=== PATIENT | female | born 1960 | race Hispanic/Latino ===

== ENCOUNTER 2020-07-12 22:13 | Inpatient (IN) | payer OTHER ==
[~2020-07-12] VITALS: Ht 134.6 cm; Wt 66.4 kg
[2020-07-12] MEDS ORDERED: ONDANSETRON HCL 4 MG/2 ML VIAL ONE (22:15)
[2020-07-12] MEDS ORDERED: ASPIRIN 325 MG TABLET ONE (22:15)
[2020-07-12] MEDS ORDERED: FAMOTIDINE/PF 20 MG/2 ML VIAL IV ONE (22:15)
[2020-07-12] MEDS ORDERED: NITROGLYCERIN 1GM/1 INCH PACKET TD ONE (22:16)
[2020-07-12] MEDS ORDERED: PANTOPRAZOLE 40 MG/VIAL ONE (22:16)
[2020-07-12 22:25] LABS: BASOPHILS % (AUTO) 0.4 % (0.0-5.0); EOSINOPHILS % (AUTO) 2.8 % (0.0-8.0); LYMPHOCYTES % (AUTO) 24.8 % (21.0-51.0); MEAN CORPUSCULAR HEMOGLOBIN 29.6 pg (27.0-33.0); MEAN CORPUSCULAR HGB CONC 32.3 g/dL (32.0-36.0); MEAN CORPUSCULAR VOLUME 91.5 fL (79-99); MONOCYTES % (AUTO) 3.6 % (3.0-13.0); PLATELET COUNT (AUTO) 206 K/uL (130-400); RED BLOOD CELL COUNT(AUTO) 2.13 MIL/uL (4.00-5.50); RED CELL DISTRIBUTION WIDTH 13.4 % (11.0-15.5); WHITE BLOOD COUNT (AUTO) 9.5 K/uL (4.8-10.8)
[2020-07-12 22:37] LABS: HEMATOCRIT 19.5 % (36-48)
[2020-07-12 22:44] LABS: INR 1.13 (0.85-1.15); PROTHROMBIN TIME 12.2 SEC (9.6-11.6)
[2020-07-12 22:45] LABS: PARTIAL THROMBOPLASTIN TIME 27.3 SEC (26.3-35.5)
[2020-07-12 22:50] LABS: ALBUMIN 3.4 g/dL (3.5-5.0); BILIRUBIN,TOTAL 0.3 mg/dL (0.2-1.0); POTASSIUM 5.4 mmol/L (3.5-5.1); TOTAL PROTEIN, SERUM 7.7 g/dL (6.0-8.3)
[2020-07-12 22:55] LABS: CREATININE 8.1 mg/dL (0.5-1.5)
[2020-07-12] MEDS ORDERED: IOHEXOL 350 MG/ML 100ML INFUS..BTL IV ONE (23:49)
[2020-07-13] MEDS ORDERED: ZOSYN 3.375GM+NS 50ML 50 ML IV ONE (01:37)
[2020-07-13] MEDS ORDERED: ACETAMINOPHEN 325 MG TAB PO PRN ×2 (03:15)
[2020-07-13] MEDS ORDERED: ONDANSETRON HCL 4 MG/2 ML VIAL IV PRN (03:15)
[2020-07-13] MEDS ORDERED: HYDROMORPHONE 1 MG/1 ML AMP IV PRN (03:15)
[2020-07-13] MEDS: ZOSYN 3.375GM+NS 50ML 50 ML IV SCH ×2 (03:15→15:23)
[2020-07-13] MEDS ORDERED: SODIUM CHLORIDE 0.9% 1000ML 1,000 ML IV SCH (03:15)
[2020-07-13 03:43] LABS: % IRON SATURATION 16.6 % (22-44)
[2020-07-13 04:15] LABS: HEMOGLOBIN A1C 5.1 % (4.0-6.0)
[2020-07-13] MEDS ORDERED: LISINOPRIL 10 MG TABLET PO SCH ×2 (04:30→09:00)
[2020-07-13] MEDS ORDERED: LISINOPRIL 5 MG TABLET ONE (04:41)
[2020-07-13 05:36] LABS: BASOPHILS % (AUTO) 0.5 % (0.0-5.0); EOSINOPHILS % (AUTO) 2.3 % (0.0-8.0); HEMATOCRIT 23.9 % (36-48); LYMPHOCYTES % (AUTO) 20.1 % (21.0-51.0); MEAN CORPUSCULAR HEMOGLOBIN 28.6 pg (27.0-33.0); MEAN CORPUSCULAR HGB CONC 31.8 g/dL (32.0-36.0); MEAN CORPUSCULAR VOLUME 89.8 fL (79-99); MONOCYTES % (AUTO) 3.9 % (3.0-13.0); NEUTROPHILS % (AUTO) 72.9 % (40.0-77.0); PLATELET COUNT (AUTO) 198 K/uL (130-400); RED BLOOD CELL COUNT(AUTO) 2.66 MIL/uL (4.00-5.50); RED CELL DISTRIBUTION WIDTH 14.2 % (11.0-15.5); WHITE BLOOD COUNT (AUTO) 7.5 K/uL (4.8-10.8)
[2020-07-13 05:52] LABS: ALBUMIN 3.2 g/dL (3.5-5.0); BILIRUBIN,TOTAL 0.4 mg/dL (0.2-1.0); CREATININE 7.8 mg/dL (0.5-1.5); POTASSIUM 5.4 mmol/L (3.5-5.1); TOTAL PROTEIN, SERUM 7.4 g/dL (6.0-8.3)
[2020-07-13 06:10] VITALS: BP 176/79
[2020-07-13] MEDS ORDERED: INSULIN HUMULIN R 100 UNIT/ML 3ML SQ SCH (07:30)
[2020-07-13 08:00] VITALS: BP 187/68
[2020-07-13 08:08] LABS: HEMATOCRIT 22.8 % (36-48)
[2020-07-13] MEDS ORDERED: FAMOTIDINE/PF 20 MG/2 ML VIAL IV SCH (09:00)
[2020-07-13] MEDS: LABETALOL 20 MG/4 ML DISP.SYRIN IV PRN (09:12)
[2020-07-13] MEDS ORDERED: CALCIUM CHLORIDE 100 MG/ML 10 ML SYG IVP SCH (09:30)
[2020-07-13] MEDS ORDERED: AMLODIPINE BESYLATE 5 MG TAB PO SCH (09:30)
[2020-07-13] MEDS ORDERED: DEXTROSE 50%-WATER 50 ML DISP.SYRIN IV SCH (09:30)
[2020-07-13] MEDS ORDERED: INSULIN HUMULIN R 100 UNIT/ML 3ML IV SCH (09:42)
[2020-07-13 11:32] LABS: HEMATOCRIT 24.6 % (36-48)
[2020-07-13] MEDS ORDERED: EPOETIN ALFA-EPBX (NON-ESRD) 10,000 UNIT/ML VIAL SQ SCH (11:45)
[2020-07-13 12:00] VITALS: BP 178/78
[2020-07-13] MEDS ORDERED: COMPOUND IV MISC 1 EACH IVSOLN MISC PRN (12:00)
[2020-07-13 13:02] LABS: APPEARANCE,URINE CLOUDY (CLEAR); BILIRUBIN,URINE NEGATIVE (NEGATIVE); COLOR,URINE YELLOW (YELLOW); GLUCOSE, URINE (UA) NEGATIVE (NEGATIVE); KETONES,URINE NEGATIVE (NEGATIVE); LEUKOCYTE ESTERASE ,URINE LARGE (NEGATIVE); NITRATE,URINE NEGATIVE (NEGATIVE); OCCULT BLOOD,URINE SMALL (NEGATIVE); PROTEIN,URINE >=300 mg/dL (NEGATIVE); UROBILINOGEN,URINE 0.2 mg/dL (0.2-1.0)
[2020-07-13 13:07] LABS: PROTEIN,URINE RANDOM 162.2 mg/dL (0-11.9)
[2020-07-13] MEDS: IRON SUCROSE COMPLEX 100 MG in SODIUM CHLORIDE 0.9% 50 ML IV SCH (13:17)
[2020-07-13 14:15] LABS: BACTERIA,URINE Many /HPF (None Seen); RBC,URINE 0-1 /HPF (0-1); WBC,URINE TNTC /HPF (0-1)
[2020-07-13 14:16] LABS: SQUAMOUS EPITHELIAL CELL,UR Rare /HPF (0-2)
[2020-07-13 15:57] LABS: HEMATOCRIT 24.3 % (36-48)
[2020-07-13 17:35] VITALS: BP 159/80
[2020-07-13 20:00] VITALS: BP 148/79
[2020-07-14] VITALS (11 sets, daily range): BP systolic 158–175; BP diastolic 67–80
[2020-07-14] MEDS: ZOSYN 3.375GM+NS 50ML 50 ML IV SCH ×2 (02:32→16:59)
[2020-07-14 04:39] LABS: BASOPHILS % (AUTO) 0.5 % (0.0-5.0); EOSINOPHILS % (AUTO) 2.5 % (0.0-8.0); HEMATOCRIT 21.4 % (36-48); LYMPHOCYTES % (AUTO) 18.2 % (21.0-51.0); MEAN CORPUSCULAR HEMOGLOBIN 29.2 pg (27.0-33.0); MEAN CORPUSCULAR HGB CONC 32.2 g/dL (32.0-36.0); MEAN CORPUSCULAR VOLUME 90.7 fL (79-99); MONOCYTES % (AUTO) 5.2 % (3.0-13.0); NEUTROPHILS % (AUTO) 73.1 % (40.0-77.0); PLATELET COUNT (AUTO) 171 K/uL (130-400); RED BLOOD CELL COUNT(AUTO) 2.36 MIL/uL (4.00-5.50); RED CELL DISTRIBUTION WIDTH 14.4 % (11.0-15.5); WHITE BLOOD COUNT (AUTO) 8.1 K/uL (4.8-10.8)
[2020-07-14 04:59] LABS: ALBUMIN 2.8 g/dL (3.5-5.0); BILIRUBIN,TOTAL 0.3 mg/dL (0.2-1.0); PHOSPHORUS 6.1 mg/dL (2.5-4.9); POTASSIUM 5.2 mmol/L (3.5-5.1); TOTAL PROTEIN, SERUM 6.4 g/dL (6.0-8.3)
[2020-07-14 05:31] LABS: CREATININE 8.2 mg/dL (0.5-1.5)
[2020-07-14] MEDS: LABETALOL 20 MG/4 ML DISP.SYRIN IV PRN (06:40)
[2020-07-14] MEDS: IRON SUCROSE COMPLEX 100 MG in SODIUM CHLORIDE 0.9% 50 ML IV SCH (10:11)
[2020-07-14] MEDS ORDERED: LIDOCAINE HCL 1% MDV 50ML VIAL ONE (10:54)
[2020-07-14 13:16] LABS: BASOPHILS % (AUTO) 0.4 % (0.0-5.0); EOSINOPHILS % (AUTO) 2.5 % (0.0-8.0); HEMATOCRIT 23.8 % (36-48); LYMPHOCYTES % (AUTO) 19.5 % (21.0-51.0); MEAN CORPUSCULAR HEMOGLOBIN 29.2 pg (27.0-33.0); MEAN CORPUSCULAR HGB CONC 31.9 g/dL (32.0-36.0); MEAN CORPUSCULAR VOLUME 91.5 fL (79-99); MONOCYTES % (AUTO) 4.6 % (3.0-13.0); NEUTROPHILS % (AUTO) 72.2 % (40.0-77.0); PLATELET COUNT (AUTO) 166 K/uL (130-400); RED CELL DISTRIBUTION WIDTH 14.6 % (11.0-15.5); WHITE BLOOD COUNT (AUTO) 7.5 K/uL (4.8-10.8)
[2020-07-14 13:33] LABS: CHOLESTEROL 103 mg/dL (<200); HDL CHOLESTEROL 25 mg/dL (35-85); LDL DIRECT 64 mg/dL (0-99); TRIGLYCERIDES 101 mg/dL (30-200)
[2020-07-14 13:46] LABS: % IRON SATURATION 48.6 % (22-44)
[2020-07-14] MEDS: AMLODIPINE BESYLATE 5 MG TAB PO SCH (16:59)
[2020-07-14] MEDS ORDERED: SODIUM CHLORIDE 0.9% 1000ML 1,000 ML IV PRN (17:45)
[2020-07-14] MEDS ORDERED: 0.9% SODIUM CHLORIDE 1000 ML IV BAG IV PRN (17:45)
[2020-07-14] MEDS ORDERED: ACETAMINOPHEN 325 MG TAB PO PRN (17:45)
[2020-07-14] MEDS ORDERED: HEPARIN SODIUM 5000UNIT/ML 1ML VIAL IJ PRN (17:45)
[2020-07-14] MEDS ORDERED: LIDOCAINE HCL-MPF 1% 2ML VIAL IJ PRN (17:45)
[2020-07-15] VITALS (7 sets, daily range): BP systolic 131–164; BP diastolic 65–72
[2020-07-15 05:08] LABS: BASOPHILS % (AUTO) 0.4 % (0.0-5.0); EOSINOPHILS % (AUTO) 3.1 % (0.0-8.0); MEAN CORPUSCULAR HEMOGLOBIN 28.3 pg (27.0-33.0); MEAN CORPUSCULAR HGB CONC 31.9 g/dL (32.0-36.0); MEAN CORPUSCULAR VOLUME 88.7 fL (79-99); NEUTROPHILS % (AUTO) 67.8 % (40.0-77.0); PLATELET COUNT (AUTO) 170 K/uL (130-400); RED BLOOD CELL COUNT(AUTO) 2.93 MIL/uL (4.00-5.50); RED CELL DISTRIBUTION WIDTH 14.1 % (11.0-15.5); WHITE BLOOD COUNT (AUTO) 8.4 K/uL (4.8-10.8)
[2020-07-15] MEDS: ZOSYN 3.375GM+NS 50ML 50 ML IV SCH ×2 (05:30→14:51)
[2020-07-15 05:57] LABS: ALBUMIN 2.7 g/dL (3.5-5.0); BILIRUBIN,TOTAL 0.4 mg/dL (0.2-1.0); CREATININE 6.4 mg/dL (0.5-1.5); POTASSIUM 4.3 mmol/L (3.5-5.1); TOTAL PROTEIN, SERUM 6.5 g/dL (6.0-8.3)
[2020-07-15] MEDS: AMLODIPINE BESYLATE 5 MG TAB PO SCH (07:50)
[2020-07-15] MEDS: IRON SUCROSE COMPLEX 100 MG in SODIUM CHLORIDE 0.9% 50 ML IV SCH (07:51)
[2020-07-15 08:17] LABS: HEPATITIS Bs ANTIGEN SCREEN P Negative (Negative)
[2020-07-15] MEDS ORDERED: EPOETIN ALFA-EPBX (ESRD) 10,000 UNIT/ML VIAL SQ SCH (09:15)
[2020-07-16 03:51] VITALS: BP 146/73
[2020-07-16] MEDS: ZOSYN 3.375GM+NS 50ML 50 ML IV SCH ×2 (04:07→15:36)
[2020-07-16 04:50] LABS: BASOPHILS % (AUTO) 0.4 % (0.0-5.0); EOSINOPHILS % (AUTO) 3.6 % (0.0-8.0); HEMATOCRIT 28.9 % (36-48); LYMPHOCYTES % (AUTO) 24.6 % (21.0-51.0); MEAN CORPUSCULAR HEMOGLOBIN 28.9 pg (27.0-33.0); MEAN CORPUSCULAR HGB CONC 31.8 g/dL (32.0-36.0); MEAN CORPUSCULAR VOLUME 90.9 fL (79-99); MONOCYTES % (AUTO) 7.1 % (3.0-13.0); NEUTROPHILS % (AUTO) 63.3 % (40.0-77.0); NUCLEATED RED BLOOD CELLS 0.3 % (0.0-0.19); PLATELET COUNT (AUTO) 165 K/uL (130-400); RED BLOOD CELL COUNT(AUTO) 3.18 MIL/uL (4.00-5.50); RED CELL DISTRIBUTION WIDTH 13.7 % (11.0-15.5); WHITE BLOOD COUNT (AUTO) 7.8 K/uL (4.8-10.8)
[2020-07-16 05:16] LABS: ALBUMIN 2.7 g/dL (3.5-5.0); BILIRUBIN,TOTAL 0.3 mg/dL (0.2-1.0); POTASSIUM 4.3 mmol/L (3.5-5.1); TOTAL PROTEIN, SERUM 6.7 g/dL (6.0-8.3)
[2020-07-16 07:59] VITALS: BP 148/70
[2020-07-16 12:05] VITALS: BP 141/73
[2020-07-16] MEDS: IRON SUCROSE COMPLEX 100 MG in SODIUM CHLORIDE 0.9% 50 ML IV SCH (15:15)
[2020-07-16] MEDS: AMLODIPINE BESYLATE 5 MG TAB PO SCH (15:15)
[2020-07-16 16:00] VITALS: BP 157/76
[2020-07-16 19:43] VITALS: BP 135/69
[2020-07-17 00:30] VITALS: BP 132/75
[2020-07-17] MEDS: ZOSYN 3.375GM+NS 50ML 50 ML IV SCH ×2 (02:59→16:18)
[2020-07-17 04:00] VITALS: BP 128/69
[2020-07-17 05:00] LABS: BASOPHILS % (AUTO) 0.5 % (0.0-5.0); EOSINOPHILS % (AUTO) 3.2 % (0.0-8.0); HEMATOCRIT 32.2 % (36-48); LYMPHOCYTES % (AUTO) 27.8 % (21.0-51.0); MEAN CORPUSCULAR HEMOGLOBIN 28.6 pg (27.0-33.0); MEAN CORPUSCULAR HGB CONC 31.7 g/dL (32.0-36.0); MEAN CORPUSCULAR VOLUME 90.2 fL (79-99); MONOCYTES % (AUTO) 7.1 % (3.0-13.0); NEUTROPHILS % (AUTO) 60.3 % (40.0-77.0); PLATELET COUNT (AUTO) 174 K/uL (130-400); RED BLOOD CELL COUNT(AUTO) 3.57 MIL/uL (4.00-5.50); RED CELL DISTRIBUTION WIDTH 13.5 % (11.0-15.5); WHITE BLOOD COUNT (AUTO) 8.1 K/uL (4.8-10.8)
[2020-07-17 05:18] LABS: CREATININE 4.5 mg/dL (0.5-1.5); MAGNESIUM 1.8 mg/dL (1.80-2.40); POTASSIUM 3.9 mmol/L (3.5-5.1)
[2020-07-17 08:00] VITALS: BP 137/60
[2020-07-17] MEDS: IRON SUCROSE COMPLEX 100 MG in SODIUM CHLORIDE 0.9% 50 ML IV SCH (09:31)
[2020-07-17] MEDS: AMLODIPINE BESYLATE 5 MG TAB PO SCH (09:31)
[2020-07-17 12:00] VITALS: BP 112/56
[2020-07-17 16:00] VITALS: BP_SYST 105; BP_SYST 114; BP_SYST 126; BP_DIAS 57; BP_DIAS 60
[2020-07-17] MEDS ORDERED: MECLIZINE HCL 12.5 MG TABLET PO PRN (16:45)
[2020-07-17 20:19] VITALS: BP 120/62
[2020-07-18] VITALS (9 sets, daily range): BP systolic 111–160; BP diastolic 56–87
[2020-07-18] MEDS: ZOSYN 3.375GM+NS 50ML 50 ML IV SCH (03:45)
[2020-07-18 06:01] LABS: BASOPHILS % (AUTO) 0.4 % (0.0-5.0); EOSINOPHILS % (AUTO) 3.7 % (0.0-8.0); HEMATOCRIT 30.8 % (36-48); LYMPHOCYTES % (AUTO) 23.3 % (21.0-51.0); MEAN CORPUSCULAR HGB CONC 31.5 g/dL (32.0-36.0); MEAN CORPUSCULAR VOLUME 92.2 fL (79-99); MONOCYTES % (AUTO) 7.1 % (3.0-13.0); NEUTROPHILS % (AUTO) 64.1 % (40.0-77.0); NUCLEATED RED BLOOD CELLS 0.2 % (0.0-0.19); PLATELET COUNT (AUTO) 179 K/uL (130-400); RED BLOOD CELL COUNT(AUTO) 3.34 MIL/uL (4.00-5.50); RED CELL DISTRIBUTION WIDTH 13.8 % (11.0-15.5); WHITE BLOOD COUNT (AUTO) 9.5 K/uL (4.8-10.8)
[2020-07-18 06:15] LABS: CREATININE 6.4 mg/dL (0.5-1.5); MAGNESIUM 1.9 mg/dL (1.80-2.40); POTASSIUM 4.1 mmol/L (3.5-5.1)
[2020-07-18] MEDS: IRON SUCROSE COMPLEX 100 MG in SODIUM CHLORIDE 0.9% 50 ML IV SCH (08:57)
[2020-07-19] VITALS (7 sets, daily range): BP systolic 93–166; BP diastolic 56–88
[2020-07-19 05:39] LABS: BASOPHILS % (AUTO) 0.4 % (0.0-5.0); EOSINOPHILS % (AUTO) 3.5 % (0.0-8.0); HEMATOCRIT 32.2 % (36-48); LYMPHOCYTES % (AUTO) 22.1 % (21.0-51.0); MEAN CORPUSCULAR HEMOGLOBIN 28.7 pg (27.0-33.0); MEAN CORPUSCULAR HGB CONC 31.7 g/dL (32.0-36.0); MEAN CORPUSCULAR VOLUME 90.7 fL (79-99); NUCLEATED RED BLOOD CELLS 0.2 % (0.0-0.19); PLATELET COUNT (AUTO) 177 K/uL (130-400); RED BLOOD CELL COUNT(AUTO) 3.55 MIL/uL (4.00-5.50); WHITE BLOOD COUNT (AUTO) 10.3 K/uL (4.8-10.8)
[2020-07-19 05:47] LABS: MAGNESIUM 1.9 mg/dL (1.80-2.40)
[2020-07-19] MEDS: CEPHALEXIN 250 MG CAPSULE PO SCH (09:28)
[2020-07-19] MEDS: IRON SUCROSE COMPLEX 100 MG in SODIUM CHLORIDE 0.9% 50 ML IV SCH (09:28)
[2020-07-20] VITALS (7 sets, daily range): BP systolic 75–165; BP diastolic 43–76
[2020-07-20] MEDS: CEPHALEXIN 250 MG CAPSULE PO SCH (09:26)
[2020-07-20] MEDS: IRON SUCROSE COMPLEX 100 MG in SODIUM CHLORIDE 0.9% 50 ML IV SCH (09:26)
[2020-07-21 03:57] VITALS: BP 151/67
[2020-07-21 08:33] VITALS: BP 145/68
[2020-07-21] MEDS: CEPHALEXIN 250 MG CAPSULE PO SCH (08:51)
[2020-07-21] MEDS: IRON SUCROSE COMPLEX 100 MG in SODIUM CHLORIDE 0.9% 50 ML IV SCH (08:51)
[2020-07-21] MEDS ORDERED: METO25TA6 PO (10:02)
[2020-07-21 13:36] VITALS: BP 143/80
[2020-07-21 17:41] VITALS: BP 140/74
== END 2020-07-21 18:15 | disposition home or self-care (01) | DRG 291 ==
LOC: EDH 22:13 → EDHIP 22:14 → 3AH 07-13 04:58
PROVIDERS: ADMIT Internal Medicine; ATTEND Internal Medicine
PROC: 30233N1 Transfusion of Nonautologous Red Blood Cells into Peripheral Vein, Percutaneous Approach (ICD-10-PCS; 2020-07-13)
PROC: 5A1D70Z Performance of Urinary Filtration, Intermittent, Less than 6 Hours Per Day (ICD-10-PCS; 2020-07-14)
PROC: 02HV33Z Insertion of Infusion Device into Superior Vena Cava, Percutaneous Approach (ICD-10-PCS; 2020-07-14)
PROC: B548ZZA Ultrasonography of Superior Vena Cava, Guidance (ICD-10-PCS; 2020-07-14)
PROC: 5A1D70Z Performance of Urinary Filtration, Intermittent, Less than 6 Hours Per Day (ICD-10-PCS; principal; 2020-07-16)
PROC: 5A1D70Z Performance of Urinary Filtration, Intermittent, Less than 6 Hours Per Day (ICD-10-PCS; 2020-07-20)
PROC: 5A1D70Z Performance of Urinary Filtration, Intermittent, Less than 6 Hours Per Day (ICD-10-PCS; 2020-07-21)
PROC: 02PYX3Z Removal of Infusion Device from Great Vessel, External Approach (ICD-10-PCS; 2020-07-21)
DX: I13.2 Hypertensive heart and chronic kidney disease with heart failure and with stage 5 chronic kidney disease, or end stage renal disease (principal); I50.43 Acute on chronic combined systolic (congestive) and diastolic (congestive) heart failure; J18.9 Pneumonia, unspecified organism; N18.6 End stage renal disease; N17.9 Acute kidney failure, unspecified; J81.1 Chronic pulmonary edema; R04.2 Hemoptysis; N39.0 Urinary tract infection, site not specified; R16.0 Hepatomegaly, not elsewhere classified; Z99.2 Dependence on renal dialysis; E66.01 Morbid (severe) obesity due to excess calories; Z68.37 Body mass index [BMI] 37.0-37.9, adult; E11.22 Type 2 diabetes mellitus with diabetic chronic kidney disease; I16.0 Hypertensive urgency; E87.5 Hyperkalemia; D63.8 Anemia in other chronic diseases classified elsewhere; D63.1 Anemia in chronic kidney disease; I95.1 Orthostatic hypotension; R42 Dizziness and giddiness
CPT/HCPCS: 36415; 36430; 36556; 70450; 71045; 71250; 74176; 76705; 77001; 80048; 80053; 80061; 81001; 82270; 82308; 82550; 82570; 82728; 82948; 83036; 83540; 83550; 83605; 83690; 83735; 83970; 84100; 84132; 84145; 84156; 84484; 85014; 85018; 85025; 85610; 85730; 86701; 86704; 86706; 86850; 86900; 86901; 86923; 87071; 87077; 87088; 87186; 87205; 87340; 87390; 90935; 93005; 93306; 93356; 97039; C1752; C9113; G0378; J1644; J1756; J1815; J2405; J2543; J3490; J7030; J7070; P9016; Q9967

== ENCOUNTER 2020-11-30 11:09 | Emergency (ER) | payer MEDICAID, OTHER ==
[~2020-11-30] VITALS: Ht 157.5 cm; Wt 77.1 kg
[~2020-11-30 11:09] MED LIST: METO25TA6 PO
[2020-11-30] MEDS ORDERED: METO25TA6 PO ×2 (11:18→14:33)
[2020-11-30] MEDS ORDERED: ATOR40TA71 PO (11:18)
[2020-11-30] MEDS ORDERED: LEVE500T19 PO (11:18)
[2020-11-30 11:20] VITALS: BP 198/82
[2020-11-30 13:00] VITALS: BP 196/89
[2020-11-30] MEDS ORDERED: 0.9%NACL 1000ML 1,000 ML IV SCH (13:00)
[2020-11-30] MEDS ORDERED: CLONIDINE HCL 0.2 MG TABLET PO ONE (13:27)
[2020-11-30] MEDS ORDERED: CLONIDINE HCL 0.2 MG TABLET PO SCH (13:30)
[2020-11-30 14:30] VITALS: BP 175/68
[2020-11-30 15:30] VITALS: BP 110/57
[2020-11-30 16:24] VITALS: BP 116/53
== END 2020-11-30 16:33 | disposition home or self-care (01) ==
LOC: EDH 11:09
DX: I10 Essential (primary) hypertension (principal); F43.0 Acute stress reaction; F41.9 Anxiety disorder, unspecified; R11.2 Nausea with vomiting, unspecified; E11.9 Type 2 diabetes mellitus without complications; E78.00 Pure hypercholesterolemia, unspecified; Z79.899 Other long term (current) drug therapy
CPT/HCPCS: 96360; 99285; J7030